=== PATIENT | male | born 1955 | race Caucasian/White ===

== ENCOUNTER 2017-09-25 09:25 | Outpatient (CLI) | payer BC ==
[~2017-09-25] VITALS: Ht 188 cm; Wt 181.4 kg
[2017-09-25] MEDS ORDERED: LOSA1TAB7 PO (09:58)
[2017-09-25] MEDS ORDERED: METF-620 PO (09:58)
[2017-09-25] MEDS ORDERED: INSU100V8 SQ (09:58)
[2017-09-25] MEDS ORDERED: PRAV10TA2 PO (09:58)
[2017-09-25] MEDS ORDERED: LIRA0.6P2 SQ (09:58)
[2017-09-25 10:09] VITALS: BP 121/70
[2017-09-25 10:12] LABS: HEMATOCRIT 43.2 % (39.0-53.0); HEMOGLOBIN 14.4 g/dL (13.0-17.5); RED BLOOD COUNT 4.95 x10^6/uL (4.30-5.70); WHITE BLOOD COUNT 4.9 x10^3/uL (4.0-11.0)
[2017-09-25 10:20] LABS: CALCIUM 9.4 mg/dL (8.5-10.1); CREATININE 0.9 mg/dL (0.7-1.3); GFR 85.8; POTASSIUM 3.7 mmol/L (3.5-5.1)
[2017-09-25 10:25] LABS: INR 0.9 (0.8-1.1); PROTHROMBIN TIME PATIENT 11.9 SEC (11.7-14.0)
== END 2017-09-25 10:40 | disposition home or self-care (01) ==
LOC: CCL 09:25
PROVIDERS: ATTEND Internal Medicine Cardiovascular Disease
DX: R94.39 Abnormal result of other cardiovascular function study (principal); Z53.9 Procedure and treatment not carried out, unspecified reason; I11.0 Hypertensive heart disease with heart failure; I50.9 Heart failure, unspecified; K21.9 Gastro-esophageal reflux disease without esophagitis; E11.9 Type 2 diabetes mellitus without complications; Z86.39 Personal history of other endocrine, nutritional and metabolic disease; Z98.890 Other specified postprocedural states; Z72.89 Other problems related to lifestyle
CPT/HCPCS: 36415; 80048; 85027; 85610

== ENCOUNTER 2017-10-02 07:54 | Inpatient (IN) | payer BC ==
[~2017-10-02] VITALS: Ht 188 cm; Wt 171.5 kg
[2017-10-02] VITALS (14 sets, daily range): BP systolic 114–164; BP diastolic 64–89
[~2017-10-02 07:54] MED LIST: INSU100V8 SQ; LIRA0.6P2 SQ; LOSA1TAB7 PO; METF-620 PO; PRAV10TA2 PO
[2017-10-02 08:18] LABS: HEMATOCRIT 44.2 % (39.0-53.0); HEMOGLOBIN 14.7 g/dL (13.0-17.5); RED BLOOD COUNT 5.03 x10^6/uL (4.30-5.70); RED CELL DISTRIBUTION WIDTH 13.1 % (11.5-14.5); WHITE BLOOD COUNT 6.5 x10^3/uL (4.0-11.0)
[2017-10-02 08:29] LABS: CALCIUM 9.2 mg/dL (8.5-10.1); POTASSIUM 3.7 mmol/L (3.5-5.1)
[2017-10-02 08:31] LABS: INR 0.8 (0.8-1.1); PROTHROMBIN TIME PATIENT 10.8 SEC (11.7-14.0)
[2017-10-02] MEDS ORDERED: IODIXANOL 320 MG/ML 100 ML VIAL. ONE ×2 (09:44→11:25)
[2017-10-02] MEDS ORDERED: LIDOCAINE 2% 20 ML VIAL. ONE (09:45)
--- NOTE | 2017-10-02 09:50 | PDOC ---
MODERATE SEDATION ASSESSMENT RISKS/ALTERNATIVES Risks/Alternatives Risks and alternatives of this type of sedation and procedure discussed with: RISK/ALTERNATIVES: Patient H & P ON CHART H & P H & P on chart and reviewed for co-morbid conditions and appropriate labs. H&P ON CHART: Yes STATUS PREG STATUS ASSESSED: N/A MEDS/ALLERGIES REVIEWED Meds/Allergies Reviewed Medications and Allergies including time and route of recently administered narcotics and sedatives. MEDS/ALLERGIES REVIEWED: Yes ASA RATING ASA RATING: II AIRWAY ASSESSMENT Airway Assessment Airway patency, oral function limitations, presence of caps, crowns, dentures, partials, and ability to extend neck assessed. AIRWAY ASSESSMENT: Yes MALLAMPATI SCORE MALLAMPATI SCORE: II PRE-SEDATION ASSESSMENT PRE-SEDATION ASSESSMENT: Yes PACO REYNA MD Oct 02, 2017 09:50
[2017-10-02] MEDS ORDERED: MIDAZOLAM HCL/PF 5 MG/5 ML VIAL. ONE (10:17)
[2017-10-02] MEDS ORDERED: fentaNYL PF VIAL 100 MCG/2 ML VIAL ONE (10:17)
[2017-10-02] MEDS ORDERED: HEPARIN for IV BOLUS 10,000 UNIT/10 ML VIAL. ONE (10:18)
[2017-10-02] MEDS ORDERED: VERAPAMIL 5 MG/2 ML VIAL. ONE (10:18)
[2017-10-02] MEDS ORDERED: NITROGLYCERIN 200 MCG/2 ML SYRINGE FOR CATH/VASC LAB. ONE (10:18)
[2017-10-02] MEDS ORDERED: BIVALIRUDIN 250 MG VIAL. IV ONE ×4 (11:00→11:45)
[2017-10-02] MEDS ORDERED: TICAGRELOR 90 MG TABLET. ONE (11:36)
[2017-10-02] MEDS ORDERED: ASPIRIN 325 MG TABLET ONE (11:36)
[2017-10-02] MEDS ORDERED: LIDOCAINE 2% 20 ML VIAL. IJ ONE (11:45)
[2017-10-02] MEDS ORDERED: VERAPAMIL 5 MG/2 ML VIAL. IART ONE (11:45)
[2017-10-02] MEDS ORDERED: TICAGRELOR 90 MG TABLET. PO ONE (11:45)
[2017-10-02] MEDS ORDERED: NITROGLYCERIN 200 MCG/2 ML SYRINGE FOR CATH/VASC LAB. IART ONE (11:45)
[2017-10-02] MEDS ORDERED: ASPIRIN 325 MG TABLET PO ONE (11:45)
[2017-10-02] MEDS ORDERED: HEPARIN for IV BOLUS 10,000 UNIT/10 ML VIAL. IART ONE (11:45)
[2017-10-02] MEDS ORDERED: fentaNYL PF VIAL 100 MCG/2 ML VIAL IV ONE (11:45)
[2017-10-02] MEDS ORDERED: MIDAZOLAM HCL/PF 5 MG/5 ML VIAL. IV ONE (11:45)
[2017-10-02] MEDS ORDERED: IODIXANOL 320 MG/ML 100 ML VIAL. IART ONE (12:00)
[2017-10-02] MEDS ORDERED: IV NORMAL SALINE 1000ML BAG 1,000 ML IV SCH (12:05)
[2017-10-02] MEDS ORDERED: LIDOCAINE 2% 100 MG/5 ML SYRINGE. IV PRN (12:15)
[2017-10-02] MEDS ORDERED: fentaNYL PF VIAL 100 MCG/2 ML VIAL IV PRN (12:15)
[2017-10-02] MEDS ORDERED: NITROGLYCERIN SUBLINGUAL 0.4 MG BOTTLE OF 25. SL PRN (12:15)
[2017-10-02] MEDS ORDERED: 0.9 % SODIUM CHLORIDE 10 ML DISP.SYRIN. IV PRN (12:15)
[2017-10-02] MEDS ORDERED: ATROPINE 0.5 MG/5 ML DISP.SYRIN. IV PRN (12:15)
[2017-10-02] MEDS ORDERED: ACETAMINOPHEN 325 MG TABLET. PO PRN (12:15)
[2017-10-02] MEDS ORDERED: AMIODARONE 150 MG in IV DEXTROSE 5% 100 ML IV PRN (12:15)
--- NOTE | 2017-10-02 13:14 | EKG ---
[facility] [address] [place] [address] Test Date: 2017-10-02 Test Time: 13:09:53 Pat Name: MATHIEU HERNANDEZ Department: Room: Gender: M Harvest Worker Fruit: LOLY : 1955 Requested By: PACO REYNA Order Number: [id number] Reading MD: Measurements Intervals [place] Rate: 76 P: 28 MI: 176 QRS: -42 QRSD: 84 T: 39 QT: 378 QTc: 430 Interpretive Statements SINUS RHYTHM ABNORMAL LEFT AXIS DEVIATION ABNORMAL ECG RI6.01 Compared to ECG 03/09/2013 13:05:22 Left-axis deviation now present
--- NOTE | 2017-10-02 13:15 | CARD ---
APPROVED REPORT Procedures Selective coronary angiogram Drug-coated stent to the right coronary artery. The patient is a 62-year-old male with a history of stent placement to the LAD. He had episodes of c hest discomfort and underwent nuclear stress testing that showed inferior wall defects. With adjustme nts of medications his pain improved. However in the setting of original chest discomfort, an abnorma l nuclear scan and his history of CAD a cardiac catheterization was recommended. Risks and benefits w ere discussed with the patient. He agreed to proceed. Testing was performed from the radial artery se condary to his weight of approximately 400 pounds. After informed consent was obtained the patient was brought to the heart catheterization lab. The are a of the right radial artery was prepared usual manner with Betadine, sterile draping and local anest hetics after a normal Howie's test. A quick catheter was used to engage the right radial artery, a wi re placed and a 6 Guyanese sheath placed over the wire. The standard mixture of heparin an antispasm me dication was administered through the sheath. Using a J-wire, a 6 Guyanese JL4 diagnostic catheter was advanced to the ascending aorta. It was used to engage the left coronary system and sequential inje ctions in various views were obtained. Using an mflw-chm-swzu technique, a 6 Guyanese JR5 diagnostic c atheter was used to attempt to engage the right coronary artery which was not successful. This was ex changed over the wire and a Compa 6 Guyanese right diagnostic catheter was able to engage the right coronary artery. Sequential injections in various views were obtained. On reviewing the films the pat ient had a mid right coronary artery lesion of 80%. We proceeded to revascularize. Angiomax was administered as per protocol. A 6 Guyanese JR4 guide with side holes was used to engage th e right coronary artery. A PT choice wire was used to cross the lesion. The lesion was directly stent ed with a 3.5 x 18 Xience Alpine drug-eluting stent deployed with one inflation at 16 mauro for 16 seco nds. Residual lesion was 0%. The wire was removed from the patient. Final injections were obtained. T he catheter was then removed from the patient over a guidewire. The arterial sheath was removed and s ealed with a TR band. The patient was moved to the holding area in stable condition. Hemodynamics. Aortic root pressure of 134/88. Coronaries. Left main. The left main had no lesions. Left anterior descending. The proximal LAD stent had restenosis in the 40% range. More distally it wa s a relatively small vessel with diffuse 60-70% lesions. These were present on a previous angiogram b ut have mildly progressed since that time. Left circumflex. The left circumflex had a proximal 20% lesion. Obtuse marginal 1 had a 30-35% lesion . Right coronary artery. The right coronary was a dominant vessel with a mid 80-85% lesion. <Conclusion> Patent proximal LAD stent. 80% mid right coronary artery lesion with inferior wall abnormalities on nuclear scanning. Successful drug-eluting stent placement to the right coronary artery with residual lesion of 0%. Diffuse distal LAD disease as outlined above.
[2017-10-02] MEDS ORDERED: DEXTROSE 50% 25 GM / 50ML DISP.SYRIN. IV PRN (15:30)
[2017-10-02] MEDS: METOPROLOL SUCC 24HR ER 25 MG TAB.ER.24H. PO SCH (16:00)
[2017-10-02] MEDS: LOSARTAN POTASSIUM 50 MG TABLET. PO SCH (16:00)
[2017-10-02] MEDS ORDERED: INSU100I13 SQ (16:12)
[2017-10-02] MEDS: INSULIN ASPART 300 UNITS/3 ML INSULN.PEN SQ SCH (18:43)
[2017-10-02] MEDS ORDERED: ATORVASTATIN CALCIUM 10 MG TABLET. PO SCH (21:00)
[2017-10-02] MEDS: INSULIN DETEMIR 300 UNITS/3 ML INSULN.PEN. SQ SCH (21:29)
[2017-10-03 03:30] VITALS: BP 143/86
--- NOTE | 2017-10-03 06:23 | EKG ---
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
[2017-10-03 07:00] VITALS: BP 148/85
[2017-10-03 07:33] LABS: BASO % 1 % (0-3); EOS % 6 % (0-3); HEMATOCRIT 41.6 % (39.0-53.0); HEMOGLOBIN 13.7 g/dL (13.0-17.5); LYMPH # 1.8 x10^3/uL (1.0-4.8); LYMPH % 34 % (24-48); MEAN CORPUSCULAR HEMOGLOBIN 29 pg (25-35); MEAN CORPUSCULAR HGB CONC 33 g/dL (31-37); MEAN CORPUSCULAR VOLUME 88 fL (79-100); MONO % 8 % (0-9); NEUT % 52 % (31-73); PLATELET COUNT 238 x10^3/uL (140-400); RED BLOOD COUNT 4.75 x10^6/uL (4.30-5.70); WHITE BLOOD COUNT 5.5 x10^3/uL (4.0-11.0)
[2017-10-03 07:47] LABS: ALBUMIN 3.1 g/dL (3.4-5.0); CALCIUM 8.5 mg/dL (8.5-10.1); CREATININE 0.9 mg/dL (0.7-1.3); DIRECT BILIRUBIN 0.2 mg/dL (0.0-0.2); GFR 85.8; POTASSIUM 3.6 mmol/L (3.5-5.1); TOTAL BILIRUBIN 0.7 mg/dL (0.2-1.0); TOTAL PROTEIN 6.6 g/dL (6.4-8.2)
[2017-10-03 07:50] LABS: CHOLESTEROL/HDL RATIO 3.1
[2017-10-03] MEDS ORDERED: ASPIRIN ENTERIC COATED 81 MG TABLET.DR. PO SCH (08:00)
[2017-10-03] MEDS: INSULIN ASPART 300 UNITS/3 ML INSULN.PEN SQ SCH ×2 (08:00→12:00)
[2017-10-03] MEDS: INSULIN DETEMIR 300 UNITS/3 ML INSULN.PEN. SQ SCH (09:00)
[2017-10-03] MEDS ORDERED: NON FORMULARY ITEM (Liraglutide (Victoza 3-Pak) 1.8 MG) SQ SCH (09:00)
[2017-10-03] MEDS ORDERED: TICAGRELOR 90 MG TABLET. PO SCH (09:00)
[2017-10-03] MEDS: LOSARTAN POTASSIUM 50 MG TABLET. PO SCH (09:53)
[2017-10-03] MEDS: METOPROLOL SUCC 24HR ER 25 MG TAB.ER.24H. PO SCH (09:53)
[2017-10-03 11:00] VITALS: BP 168/92
[2017-10-03] MEDS ORDERED: TICA90TA PO (12:09)
[2017-10-03] MEDS ORDERED: CARV3.12 PO (12:09)
[2017-10-03] MEDS ORDERED: ASPI-612 PO (12:15)
--- NOTE | 2017-10-03 13:59 | PDOC3 ---
Discharge Summary Visit Information Date of Admission: Oct 02, 2017 Date of Discharge: Oct 03, 2017 Admitting Diagnosis Comment: Angina with coronary artery disease. Final Diagnosis Angina with coronary artery disease. Brief Hospital Course Allergies Allergies Coded Allergies Type Severity Reaction Last Updated Verified No Known Drug Allergies 09/04/17 No Vital Signs Vital Signs Date Time Temp Pulse Resp B/P (MAP) Pulse Ox O2 Delivery O2 Flow Rate FiO2 10/03/17 11:00 97.8 67 20 168/92 (117) 97 Room Air 97.8 Lab Results Laboratory Tests Test 10/02/17 08:10 10/02/17 16:42 10/02/17 20:49 10/03/17 06:40 White Blood Count 6.5 x10^3/uL (4.0-11.0) 5.5 x10^3/uL (4.0-11.0) Red Blood Count 5.03 x10^6/uL (4.30-5.70) 4.75 x10^6/uL (4.30-5.70) Hemoglobin 14.7 g/dL (13.0-17.5) 13.7 g/dL (13.0-17.5) Hematocrit 44.2 % (39.0-53.0) 41.6 % (39.0-53.0) Mean Corpuscular Volume 88 fL (79-100) 88 fL (79-100) Mean Corpuscular Hemoglobin 29 pg (25-35) 29 pg (25-35) Mean Corpuscular Hemoglobin Concent 33 g/dL (31-37) 33 g/dL (31-37) Red Cell Distribution Width 13.1 % (11.5-14.5) 13.0 % (11.5-14.5) Platelet Count 282 x10^3/uL (140-400) 238 x10^3/uL (140-400) Prothrombin Time 10.8 SEC (11.7-14.0) Prothromb Time International Ratio 0.8 (0.8-1.1) Sodium Level 141 mmol/L (136-145) 138 mmol/L (136-145) Potassium Level 3.7 mmol/L (3.5-5.1) 3.6 mmol/L (3.5-5.1) Chloride Level 101 mmol/L (98-107) 101 mmol/L (98-107) Carbon Dioxide Level 31 mmol/L (21-32) 27 mmol/L (21-32) Anion Gap 9 (6-14) 10 (6-14) Blood Urea Nitrogen 19 mg/dL (8-26) 14 mg/dL (8-26) Creatinine 1.0 mg/dL (0.7-1.3) 0.9 mg/dL (0.7-1.3) Estimated GFR (Cockcroft-Gault) 76.0 85.8 Glucose Level 160 mg/dL (70-99) 246 mg/dL (70-99) Calcium Level 9.2 mg/dL (8.5-10.1) 8.5 mg/dL (8.5-10.1) Glucose (Fingerstick) 248 mg/dL (70-99) 315 mg/dL (70-99) Neutrophils (%) (Auto) 52 % (31-73) Lymphocytes (%) (Auto) 34 % (24-48) Monocytes (%) (Auto) 8 % (0-9) Eosinophils (%) (Auto) 6 % (0-3) Basophils (%) (Auto) 1 % (0-3) Neutrophils # (Auto) 2.8 x10^3uL (1.8-7.7) Lymphocytes # (Auto) 1.8 x10^3/uL (1.0-4.8) Monocytes # (Auto) 0.4 x10^3/uL (0.0-1.1) Eosinophils # (Auto) 0.3 x10^3/uL (0.0-0.7) Basophils # (Auto) 0.0 x10^3/uL (0.0-0.2) Total Bilirubin 0.7 mg/dL (0.2-1.0) Direct Bilirubin 0.2 mg/dL (0.0-0.2) Aspartate Amino Transf (AST/SGOT) 10 U/L (15-37) Alanine Aminotransferase (ALT/SGPT) 15 U/L (16-63) Alkaline Phosphatase 46 U/L (46-116) Total Protein 6.6 g/dL (6.4-8.2) Albumin 3.1 g/dL (3.4-5.0) Triglycerides Level 92 mg/dL (0-150) Cholesterol Level 132 mg/dL (0-200) LDL Cholesterol, Calculated 71 mg/dL (0-100) VLDL Cholesterol, Calculated 18 mg/dL (0-40) Non-HDL Cholesterol Calculated 89 mg/dL (0-129) HDL Cholesterol 43 mg/dL (40-60) Cholesterol/HDL Ratio 3.1 Test 10/03/17 07:50 10/03/17 11:52 Glucose (Fingerstick) 244 mg/dL (70-99) 311 mg/dL (70-99) Laboratory Tests Test 10/02/17 16:42 10/02/17 20:49 10/03/17 06:40 10/03/17 07:50 Glucose (Fingerstick) 248 mg/dL (70-99) 315 mg/dL (70-99) 244 mg/dL (70-99) White Blood Count 5.5 x10^3/uL (4.0-11.0) Red Blood Count 4.75 x10^6/uL (4.30-5.70) Hemoglobin 13.7 g/dL (13.0-17.5) Hematocrit 41.6 % (39.0-53.0) Mean Corpuscular Volume 88 fL (79-100) Mean Corpuscular Hemoglobin 29 pg (25-35) Mean Corpuscular Hemoglobin Concent 33 g/dL (31-37) Red Cell Distribution Width 13.0 % (11.5-14.5) Platelet Count 238 x10^3/uL (140-400) Neutrophils (%) (Auto) 52 % (31-73) Lymphocytes (%) (Auto) 34 % (24-48) Monocytes (%) (Auto) 8 % (0-9) Eosinophils (%) (Auto) 6 % (0-3) Basophils (%) (Auto) 1 % (0-3) Neutrophils # (Auto) 2.8 x10^3uL (1.8-7.7) Lymphocytes # (Auto) 1.8 x10^3/uL (1.0-4.8) Monocytes # (Auto) 0.4 x10^3/uL (0.0-1.1) Eosinophils # (Auto) 0.3 x10^3/uL (0.0-0.7) Basophils # (Auto) 0.0 x10^3/uL (0.0-0.2) Sodium Level 138 mmol/L (136-145) Potassium Level 3.6 mmol/L (3.5-5.1) Chloride Level 101 mmol/L (98-107) Carbon Dioxide Level 27 mmol/L (21-32) Anion Gap 10 (6-14) Blood Urea Nitrogen 14 mg/dL (8-26) Creatinine 0.9 mg/dL (0.7-1.3) Estimated GFR (Cockcroft-Gault) 85.8 Glucose Level 246 mg/dL (70-99) Calcium Level 8.5 mg/dL (8.5-10.1) Total Bilirubin 0.7 mg/dL (0.2-1.0) Direct Bilirubin 0.2 mg/dL (0.0-0.2) Aspartate Amino Transf (AST/SGOT) 10 U/L (15-37) Alanine Aminotransferase (ALT/SGPT) 15 U/L (16-63) Alkaline Phosphatase 46 U/L (46-116) Total Protein 6.6 g/dL (6.4-8.2) Albumin 3.1 g/dL (3.4-5.0) Triglycerides Level 92 mg/dL (0-150) Cholesterol Level 132 mg/dL (0-200) LDL Cholesterol, Calculated 71 mg/dL (0-100) VLDL Cholesterol, Calculated 18 mg/dL (0-40) Non-HDL Cholesterol Calculated 89 mg/dL (0-129) HDL Cholesterol 43 mg/dL (40-60) Cholesterol/HDL Ratio 3.1 Test 10/03/17 11:52 Glucose (Fingerstick) 311 mg/dL (70-99) Brief Hospital Course Mr. Ferrer is a 62 old male who was evaluated as an outpatient for chest pain and had an abnormal nuclear stress test with abnormalities in the inferior wall. He underwent cardiac catheterization. This revealed a significant right coronary lesion which was stented with good results. The patient was monitored overnight and remained stable. He will be discharged today in stable condition. Home medications will be continued with the addition of Brilenta 90 mg by mouth twice a day. Follow-up will be in the office in 3-4 weeks. Diet continues to be a low cholesterol diet. Discharge Information Condition at Discharge: Improved Follow Up: Weeks (Three weeks) Disposition/Orders: D/C to Home Scheduled Aspirin (Aspirin Ec), 1 TAB PO DAILY Carvedilol (Coreg), 1 TAB PO BID Insulin Glargine,Hum.rec.anlog (Lantus), 40 UNIT SQ BID, (Reported) Insulin Glargine,Hum.rec.anlog (Lantus Solostar), 50 UNIT SQ BID, (Reported) Liraglutide (Victoza 3-Binh), 1.8 MG SQ DAILY, (Reported) Losartan/Hydrochlorothiazide (Hyzaar 100-12.5 Tablet), 1 TAB PO DAILY, (Reported ) Metformin Hcl (Metformin Hcl), 1,000 MG PO BID, (Reported) Pravastatin Sodium (Pravastatin Sodium), 1 TAB PO UD, (Reported) Ticagrelor (Brilinta), 90 MG PO BID PACO REYNA MD Oct 03, 2017 13:59
== END 2017-10-03 12:30 | disposition home or self-care (01) | DRG 247 ==
LOC: CCL 07:54 → 2 NORTH 11:16
PROVIDERS: ADMIT Internal Medicine Cardiovascular Disease; ATTEND Internal Medicine Cardiovascular Disease
PROC: B2111ZZ Fluoroscopy of Multiple Coronary Arteries using Low Osmolar Contrast (ICD-10-PCS; principal; 2017-10-02)
PROC: 027034Z Dilation of Coronary Artery, One Artery with Drug-eluting Intraluminal Device, Percutaneous Approach (ICD-10-PCS; 2017-10-02)
PROC: B2151ZZ Fluoroscopy of Left Heart using Low Osmolar Contrast (ICD-10-PCS; 2017-10-02)
PROC: 5A09357 Assistance with Respiratory Ventilation, Less than 24 Consecutive Hours, Continuous Positive Airway Pressure (ICD-10-PCS; 2017-10-02)
DX: I25.119 Atherosclerotic heart disease of native coronary artery with unspecified angina pectoris (principal)
CPT/HCPCS: 36415; 80048; 80061; 80076; 82962; 85025; 85027; 85610; 92928; 93005; 93454; 99152; 99153; C1769; C1874; C1887; C1892; J0583; J1644; J1815; J2250; J3010; J3490; J2001